=== PATIENT | female | born 1935 | race Caucasian/White ===

== ENCOUNTER 2016-08-13 00:13 | Emergency (ER) | payer MEDICARE, OTHER ==
[2016-08-13 00:26] VITALS: BP 240/101; PULSE 76; TEMP 97.7; BMI 34.0
--- NOTE | 2016-08-13 00:59 | DIRPT ---
CLINICAL DATA: Acute onset of dorsal right hand swelling. Initial encounter. EXAM: RIGHT HAND - COMPLETE 3+ VIEW COMPARISON: None. FINDINGS: There is no evidence of fracture or dislocation. There is loss of the joint space between the distal radius and scaphoid, and at the first carpometacarpal joint. Subcortical cystic change is noted at the distal radius. There is some degree of degenerative change between the proximal and distal carpal rows. Negative ulnar variance is noted. The lunate is difficult to fully assess. Dorsal soft tissue swelling is noted at the wrist and overlying the metacarpals, of uncertain significance. IMPRESSION: 1. No evidence of acute fracture or dislocation. 2. Degenerative change noted about the wrist, as described above. 3. Dorsal soft tissue swelling, of uncertain significance. Electronically Signed By: Agustin Paredes M.D. On: 08/13/2016 00:56
--- NOTE | 2016-08-13 02:26 | EDPRACDOC ---
- General Information Chief Complaint: Hand Pain Stated Complaint: HAND SWELLING Time Seen by Provider: 08/13/16 02:18 Mode of Arrival: Car Home Medications: Home Medications Atenolol [Tenormin] 50 mg PO DAILY 01/04/15 CloNIDine (Antihypertensive) [Catapres] 0.1 mg PO DAILY 01/04/15 Furosemide [Lasix] 40 mg PO DAILY 01/04/15 Metformin HCl 500 mg PO BID 01/04/15 Omeprazole Magnesium [Prilosec Otc] 20 mg PO DAILY PRN 01/04/15 Valsartan [Diovan] 320 mg PO DAILY 01/04/15 Verapamil [Calan SR] 120 mg PO DAILY 01/04/15 Ciprofloxacin HCl 500 mg PO BID #28 tablet 01/07/15 Metronidazole 500 mg PO TID #42 tablet 01/07/15 Ondansetron HCl [Zofran] 4 mg PO Q6 PRN #30 tablet 01/07/15 Oxycodone Immediate Release [Oxy-Ir] 5 mg PO Q4H PRN #40 tab 01/07/15 Diphenhydramine [Benadryl] 25 mg PO TID #20 cap 08/13/16 Ketorolac Tromethamine [Toradol] 10 mg PO Q6H PRN #20 tab 08/13/16 Allergies/Adverse Reactions: Allergies Allergy/AdvReac Type Severity Reaction Status Date / Time No Known Allergies Allergy Verified 01/04/15 21:14 - History of Present Illness Onset: [employer] HPI: PATIENT NOTES RIGHT HAND DORSAL SWELLING THAT OCCURRED SUDDENLY TONIGHT. SHE DENIES TRAUMA. DOES NOT REMEMBER A BITE. NO PRIOR EVENT. NO PAIN. NOTES THAT HER HANDS OCCASIONALLY TINGLE ASSOCIATE WITH GANGLION CYST. Location: Reports: Right, Hand Dominant Hand: Right Mechanism: Reports: No Injury/Trauma Tetanus Up To Date?: Yes ED Past Medical History - History Reviewed Yes Nurses notes reviewed and agree except as marked Travel Outside of [place] in the Last 3 Months?: No - Patient Medical History Cardiac History: Reports: Hypertension, Valvular Heart Disease GI/ History: Reports: Renal Disease, Urinary Tract Infection, Gastroesophageal Reflux Musculoskeletal History: Reports: Arthritis, Osteoarthritis Psychological History: Reports: Anxiety Systemic History: Reports: Diabetes Surgical History: Reports: Hernia Surgery (possibly umbilical.), Tonsillectomy/ Adnoidectomy - Family Medical History Reports: Hypertension (Brother), Diabetes (Mother, Brother), Stroke (Mother, Father, Grandmothers), Cardiac Disorders (Father) - Social Medical History Smoking Status: Never smoker ETOH: None Substance Abuse: None Lives With: Family Lives In: Home EDM Review of Systems - Review of Systems ROS Negative Except as Marked: Yes All systems reviewed and were negative except as marked Constitutional: No Symptoms Reported. negative: Fever, Chills, Weakness, Fatigue, Loss of Appetite Eyes: No Symptoms Reported. negative: Redness, Blurred Vision, Double Vision, Discharge, Pain, Light Sensitive, Photophobia Ears: No Symptoms Reported. negative: Pain, Hearing Loss, Drainage, Ear Pulling Throat: No Symptoms Reported. negative: Pain, Swelling Nose: No Symptoms Reported. negative: Congestion, Bleeding, Discharge, Injection, Swelling, Deformity, Ecchymosis, Tender, Abrasion, Laceration Mouth: No Symptoms Reported. negative: Pain, Drooling Respiratory: No Symptoms Reported. negative: Cough, Brassy Cough, Barky Cough, Shortness of Breath, Wheezing, Hemoptysis Cardiovascular: No Symptoms Reported. negative: Chest Pain, Palpitations, Syncope, Edema, Orthopnea, PND, Skin Mottling, Cyanosis Gastrointestinal: No Symptoms Reported. negative: Pain, Constipation, Nausea, Vomiting, Diarrhea, Melena, Formula Intolerance Genitourinary: No Symptoms Reported. negative: Dysuria, Hematuria, Frequency, Discharge, Bleeding, Testicular Pain, Neurological: No Symptoms Reported. negative: Headache, Dizziness, Seizure, Numbness, Weakness, Speech Difficulty, Gait Difficulty Musculoskeletal: No Symptoms Reported. negative: Neck, Chestwall, Ribs, Back, Shoulder, Arm, Elbow, Forearm, Wrist, Hand, Pelvis, Hip, Femur, Knee, Leg, Ankle , Foot Integumentary: Other (RIGHT HAND SWELLING). negative: Bruising, Itching, Rash, Wound Allergic/Immunologic: No Symptoms Reported. negative: Hives, Itching Hematologic: No Symptoms Reported. negative: Lymphadenopathy, Easy Bruising, Easy Bleeding Endocrine: No Symptoms Reported. negative: Weight Gain, Weight Loss Psychiatric: No Symptoms Reported. negative: Anxiety, Depression, Hallucinations, Insomnia, Suicidal - Physical Exam Constitutional: Alert (Awake), No apparent distress Oriented to: Time, Person, Place Last recorded Vital Signs: Last Vital Signs Temp 97.7 F 01/15/17 00:20 Pulse 76 08/13/16 00:20 Resp 20 08/13/16 00:20 BP 240/101 H 08/13/16 00:20 Pulse Ox 95 08/13/16 00:20 Oxygen Pulse Oxygen Saturation 95 O2 Device Room Air Oxygen Flow Rate Fraction of Inspired Oxygen ( FIO2) - HEENT Head: Normal ( normocephalic) Eye Exam: Normal (PERRL, EOMI, Sclera white) Oropharynx: Normal (Pharynx:Moist without exudate,Gums-no swelling) Tympanic Membrane: Normal ENT EAC: Normal TMJ: Normal Nose: No Symptoms Reported (septum midline) Neck: Normal (FROM, trachea at midline) - Respiratory/Cardiovascular Respiratory: Normal - CTA (BBS clear to auscultation without adventitious sounds ) Cardiovascular: Normal (RRR without murmur, gallop or rub) - GI Auscultation: Normal (NABS) Palpation: Normal (Soft,No rebound or guarding, non distended) Tenderness: Non tender Omer's Sign: Negative - Musculoskeletal Back: Normal (Non-Tender) Extremities: Other (LOCAL SWELLING ALONG DORSUM OF RIGHT HAND BETWEEN 1ST AND 2ND META CARPAL. NO ERYTHEMA. NO ECCHYMOSIS. NO TENDERNESS) - Integumentary Skin: Normal, Warm, Dry Lymphatics: Normal (no adenopathy) - Neurologic Memory Impaired: Normal Motor Function: Normal (Normal tone, Pulses 2+ No cyanosis or edema, FROM) Cranial Nerve: Normal (CN II-X11 intact sensation, strength 5/5) Cerebellar: Normal Mood Description: Normal Perception: Normal Decision Time to Discharge: 02:36 - Departure Yes I personally saw and evaluated the patient. Disposition: Home Condition: Good Final Diagnosis: Swelling of right hand Local reaction to insect sting Qualifiers: Encounter type: initial encounter Injury intent: accidental or unintentional Qualified Code(s): T63.481A - Toxic effect of venom of other arthropod, accidental (unintentional), initial encounter Instructions: RICE: Routine Care for Injuries Education/Counseling Given To: Patient Education/Counseling Given Regarding: Diagnosis, Treatment, Prognosis, Follow Up Referrals: None,No Provider [Primary Care Provider] - One Week Lucero Walker MD [Staff Physician] - One Week Prescriptions: Diphenhydramine [Benadryl] 25 mg PO TID #20 cap Ketorolac Tromethamine [Toradol] 10 mg PO Q6H PRN #20 tab PRN Reason: Pain
== END 2016-08-13 02:50 | disposition home or self-care (01) ==
LOC: ED 00:13
DX: M79.89 Other specified soft tissue disorders (principal); T63.481A Toxic effect of venom of other arthropod, accidental (unintentional), initial encounter; X58.XXXA Exposure to other specified factors, initial encounter
CPT/HCPCS: 73130; 99282; A9270; J3490